=== PATIENT | male | born 1985 | race African-American/Black ===

== ENCOUNTER 2020-08-09 03:32 | Emergency (ER) | payer OTHER ==
[~2020-08-09] VITALS: Ht 172.7 cm; Wt 81.6 kg
[2020-08-09] MEDS ORDERED: KETO10TA2 PO (05:13)
== END 2020-08-09 05:34 | disposition home or self-care (01) ==
LOC: ER 03:32
DX: S90.32XA Contusion of left foot, initial encounter (principal); W22.8XXA Striking against or struck by other objects, initial encounter; Y93.89 Activity, other specified; Y92.59 Other trade areas as the place of occurrence of the external cause; Y99.8 Other external cause status